=== PATIENT | male | born 1965 | race Caucasian/White ===

== ENCOUNTER 2021-12-09 15:37 | Inpatient (IN) | payer OTHER ==
[~2021-12-09] VITALS: Ht 170.2 cm; Wt 59.9 kg
[2021-12-09] MEDS ORDERED: HYDR4TAB57 PO (16:29)
[2021-12-09] MEDS ORDERED: CALC-883 PO (16:29)
[2021-12-09] MEDS ORDERED: TPN ELECTROLYTES IV (16:29)
[2021-12-09] MEDS ORDERED: ZINC220C6 PO (16:29)
[2021-12-09] MEDS ORDERED: CRAN3875 PO (16:29)
[2021-12-09] MEDS ORDERED: MULT-134 PO (16:29)
[2021-12-09] MEDS ORDERED: AMLO10TA4 PO (16:29)
[2021-12-09] MEDS ORDERED: MAGN400O6 PO (16:29)
[2021-12-09] MEDS ORDERED: ENOX40DI SQ (16:29)
[2021-12-09] MEDS ORDERED: DOCU-141 PO (16:29)
[2021-12-09] MEDS ORDERED: FERR325T23 PO (16:29)
[2021-12-09] MEDS ORDERED: LINA5TAB PO (16:29)
[2021-12-09] MEDS ORDERED: INSU100V7 SQ (16:29)
[2021-12-09] MEDS ORDERED: PANT40TA49 PO (16:29)
[2021-12-09] MEDS ORDERED: INSU100V3 IJ (16:29)
[2021-12-09] MEDS ORDERED: OCTR100V IJ (16:29)
[2021-12-09] MEDS ORDERED: ASCO500C17 PO (16:29)
--- NOTE | 2021-12-09 16:44 | NUR ---
PT W/ PATY PICC LINE GRINDER SET UP OPERATOR THREAD. BLOOD DRAWN AND SENT TO LAB.
[2021-12-09 16:54] LABS: BASOPHILS # (AUTO) 0.1 K/uL (0.0-0.2); BASOPHILS % (AUTO) 0.5 % (0.0-2.0); EOSINOPHILS % (AUTO) 0.1 % (0.0-6.0); HEMATOCRIT 22 % (39-51); HEMOGLOBIN 7.2 g/dL (13.5-17.5); LYMPHOCYTES # (AUTO) 1.1 K/uL (0.8-4.8); LYMPHOCYTES % (AUTO) 4.9 % (20.0-44.0); MEAN CORPUSCULAR HGB CONC 33 g/dl (31.0-36.0); MEAN CORPUSCULAR VOLUME 84 fL (80-96); MONOCYTES # (AUTO) 1.4 K/uL (0.1-1.30); MONOCYTES % (AUTO) 6.1 % (2.0-12.0); NEUTROPHILS # (AUTO) 20.5 K/uL (1.8-8.9); NEUTROPHILS % (AUTO) 88.4 % (43.0-81.0); PLATELET COUNT (AUTO) 473 K/uL (150-450); RED BLOOD CELL COUNT(AUTO) 2.59 MIL/uL (4.5-6.0); WHITE BLOOD COUNT (AUTO) 23.2 K/uL (4.3-11.0)
[2021-12-09 17:06] LABS: ALBUMIN 1.5 g/dL (3.4-5.0); BILIRUBIN,DIRECT 0.3 mg/dL (0.0-0.2); BILIRUBIN,TOTAL 0.4 mg/dL (0.2-1.0); CALCIUM, SERUM 8.2 mg/dL (8.5-10.1)
[2021-12-09 17:11] LABS: POTASSIUM 1.9 mmol/L (3.5-5.1)
[2021-12-09] MEDS ORDERED: POTASSIUM CL. PREMIX PERIPHER. 150 ML ONE (17:16)
[2021-12-09] MEDS: POTASSIUM CL. PREMIX PERIPHER. 50 ML IV SCH ×5 (17:25→23:30)
[2021-12-09] MEDS ORDERED: VANCOMYCIN 1 GM in IV D5W 250 ML IV ONE (17:30)
[2021-12-09] MEDS ORDERED: CEFEPIME 1 GM in IV D5W 50 ML IV ONE (17:30)
--- NOTE | 2021-12-09 17:37 | NUR ---
COVID SWAB COLLECTED AND SENT TO LAB
[2021-12-09 18:43] LABS: LYMPHOCYTES % (MANUAL) 7 % (16-48); MONOCYTES % (MANUAL) 5 % (0-11.0); NEUTROPHILS % (MANUAL) 88 (42-76)
--- NOTE | 2021-12-09 19:29 | NUR ---
[facility] CALLED DESIGN DRAFTER CHIEF PAGED.
--- NOTE | 2021-12-09 19:42 | NUR ---
BLOOD CULTURES COLLECTED
--- NOTE | 2021-12-09 20:02 | NUR ---
PT TAKEN FOR CT SCAN
--- NOTE | 2021-12-09 20:31 | NUR ---
BLOOD DRAWN FOR REFLEX LACTIC ACID
--- NOTE | 2021-12-09 21:11 | NUR ---
LACTIC ACID 2.3, AWARE
--- NOTE | 2021-12-09 21:11 | NUR ---
HOSPITALIST AT BEDSIDE
[2021-12-09] MEDS ORDERED: ZOLPIDEM TARTRATE 5 MG TABLET PO PRN (22:00)
[2021-12-09] MEDS ORDERED: MORPHINE SULFATE INJ 2 MG/ML DISP.SYRIN IV PRN (22:00)
[2021-12-09] MEDS ORDERED: Z GUARD REMEDY 4 OZ OINT TP PRN (22:00)
[2021-12-09] MEDS ORDERED: IV NS 0.9% 1,000 ML BAG IV ONE (22:00)
--- NOTE | 2021-12-09 22:18 | NUR ---
TAM ARM PICC LINE REMOVED HI MD ORDERS. TIP OBTAINED TO BE CULTURED.
[2021-12-09] MEDS ORDERED: POTASSIUM CL. PREMIX PERIPHER. 50 ML ONE ×2 (22:21→23:26)
--- NOTE | 2021-12-09 23:16 | NUR ---
PER DATASTAGE ARCHITECT RON, AIRBORNE PRECAUTIONS FOR POSSIBLE TB
[2021-12-10] VITALS (10 sets, daily range): BP systolic 96–122; BP diastolic 60–79
--- NOTE | 2021-12-10 00:20 | NUR ---
ROOM 101
--- NOTE | 2021-12-10 00:52 | NUR ---
REPORT GIVEN TO DASHAWN WOO FOR JULIO CESAR
--- NOTE | 2021-12-10 01:45 | NUR ---
RN ADMITTING NOTE RECEIVED PATIENT FROM ER VIA GURNEY ACCOMPANIED BY 2 ER STAFF, TRASNFERRED TO BED WITH MINIMAL ASSISTANCE, AAO X 4, WITH UNCLEAR SPEECH AT TIMES. BREATHING EVEN AND UNLABORED, SATURATION AT 96% ON 2L VIA NC, SR ON THE MONITOR, HR IS 92. IV LINE AT RFA 20G PATENT AND FLUSHING WELL, NO S/S OF INFECTION OR INFILTRATION, STARTED IV FLUID OF NS AT 75 ML/HR. COLOSTOMY BAG DRAINING TO A LIQUID, YELLOW OUTPUT. COMPREHENSIVE ASSESSMENT DONE, NOTED REDNESS AT COCCYX. PATIENT IS CONTINENT AND ABLE TO USE URINAL. SAFETY MEASURES IN PLACE, BED IS LOCKED AND AT LOWEST POSITION, BED ALARM ON, SIDE RAILS UP X 2, CALL LIGHT WITHIN REACH OF PATIENT. WILL CONT TO MONITOR AND CARRY OUT MD ORDERS.
[2021-12-10] MEDS ORDERED: PIPERACILLIN /TAZOBACTAM 3.375 G VIAL IV ONE (02:15)
[2021-12-10] MEDS: ZOSYN IVPB 3.375 G in IV D5W 50ml IV SCH ×6 (02:17→23:54)
[2021-12-10] MEDS: POTASSIUM CL. PREMIX PERIPHER. 50 ML IV SCH ×11 (02:51→23:47)
[2021-12-10] MEDS: HYDROMORPHONE 1 MG/1 ML DISP.SYRIN IV PRN ×2 (02:52→08:46)
[2021-12-10] MEDS: IV NS 0.9% 1,000 ML IV PRN (02:53)
--- NOTE | 2021-12-10 03:11 | NUR ---
RN NOTE STOOL COLLECTED, LAB NOTIFIED.
[2021-12-10 04:27] LABS: OCCULT BLOOD STOOL POSITIVE (NEGATIVE)
--- NOTE | 2021-12-10 05:38 | NUR ---
URINE COLLECTED, KIM OF LAB NOTIFIED.
[2021-12-10 06:15] LABS: BASOPHILS % (AUTO) 0.2 % (0.0-2.0); EOSINOPHILS % (AUTO) 0.4 % (0.0-6.0); HEMATOCRIT 21 % (39-51); LYMPHOCYTES # (AUTO) 0.8 K/uL (0.8-4.8); LYMPHOCYTES % (AUTO) 4.1 % (20.0-44.0); MEAN CORPUSCULAR HGB CONC 33 g/dl (31.0-36.0); MEAN CORPUSCULAR VOLUME 84 fL (80-96); MONOCYTES # (AUTO) 1.1 K/uL (0.1-1.30); MONOCYTES % (AUTO) 5.5 % (2.0-12.0); NEUTROPHILS % (AUTO) 89.8 % (43.0-81.0); PLATELET COUNT (AUTO) 434 K/uL (150-450); RED BLOOD CELL COUNT(AUTO) 2.45 MIL/uL (4.5-6.0)
[2021-12-10 06:34] LABS: HEMOGLOBIN 6.8 g/dL (13.5-17.5)
[2021-12-10 06:44] LABS: BILIRUBIN,URINE NEGATIVE (NEGATIVE); COLOR,URINE YELLOW (YELLOW); LEUKOCYTE ESTERASE ,URINE NEGATIVE (NEGATIVE); NITRITE, URINE NEGATIVE (NEGATIVE); PH,URINE 8.5 (5.0-8.0); PROTEIN,URINE 100 mg/dl (NEGATIVE); UGLUCOSE NEGATIVE (NEGATIVE); UROBILINOGEN,URINE 0.2 EU/dL (0.2)
[2021-12-10 07:04] LABS: THYROID STIMULATING HORMONE 1.436 uIU/mL (0.358-3.74)
[2021-12-10 07:25] LABS: BACTERIA,URINE Few /HPF (None Seen); SQUAMOUS EPITHELIAL CELL,UR Few /HPF (None Seen); WBC,URINE 21-50 /HPF (0-3)
--- NOTE | 2021-12-10 07:40 | NUR ---
RN NOTE 0600 DOSE OF ZOSYN NON ADMINISTERED PRECEDING DOSE WAS GIVEN AT 0217 BEC PATIENT TRANSFERRED FROM ER AT 0145. SPOKE WITH KRISTA FROM PHARMACY STATED WILL KEEP SCHEDULED Q6, ADMINISTER 0600 DOSE AT 0730 THEN CONTINUE PROCEEDING SCHEDULE AT 1200. MATHEW WOO MADE AWARE
[2021-12-10] MEDS: PANTOPRAZOLE 40 MG VIAL IV SCH (08:44)
--- NOTE | 2021-12-10 08:45 | NUR ---
PATIENT HGB LOW NEED BLOOD TRANSFUSION AND MULTIPLE IV,DR. RICHARDSON ORDERED MIDLINE.NURSING SUP NOTIFIED.
--- NOTE | 2021-12-10 08:49 | NUR ---
REQUEST FOR RELEASED OF MEDICAL RECORDS FAXED TO [facility],WILL FF. UP SINCE MEDICAL RECORDS CLOSE ON WEEKEND.
--- NOTE | 2021-12-10 09:34 | NUR ---
followup with nursing jason in [place] spoke with rocio and she will try to send record today,refaxed request to [phone]. tel #[phone],nursing jason townsend made aware.
[2021-12-10 10:12] LABS: CALCIUM, SERUM 7.1 mg/dL (8.5-10.1); CREATININE 1.6 mg/dL (0.6-1.3); PHOSPHORUS 3.5 mg/dL (2.5-4.9)
--- NOTE | 2021-12-10 10:15 | NUR ---
RT Sputum Induction AF[employer] 1 done.
[2021-12-10 10:17] LABS: POTASSIUM 2.6 mmol/L (3.5-5.1)
[2021-12-10] MEDS: Magnesium 1GM/D5W 100ML PREMIX 100 ML IV SCH ×4 (10:42→13:46)
[2021-12-10] MEDS: ACETAMINOPHEN 650 MG/SUPP.RECT RC PRN (10:51)
[2021-12-10] MEDS: ONDANSETRON HCL/PF 4 MG/2 ML VIAL IVP PRN ×2 (10:51→11:25)
[2021-12-10 12:26] LABS: LYMPHOCYTES % (MANUAL) 4 % (16-48); MONOCYTES % (MANUAL) 4 % (0-11.0); NEUTROPHILS % (MANUAL) 92 (42-76)
--- NOTE | 2021-12-10 12:30 | NUR ---
RECIEVED HAND OFF REPORT FROM MATHEW. WILL CONTINUE PLAN OF CARE AND ANTICIPATE NEEDS.
[2021-12-10] MEDS ORDERED: VANCOMYCIN HCL 0.75 GM in IV D5W 250 ML IV ONE (14:00)
[2021-12-10] MEDS ORDERED: POTASSIUM CHLORIDE 20 MEQ TAB.PRT.SR PO ONE (16:00)
--- NOTE | 2021-12-10 16:15 | NUR ---
FOLLOWUP UP WITH KAYLEN RAMIREZ IN [place] UNABLE TO LOCATE MEDICAL RECORD SINCE MULTIPLE PT. W/ SAME NAME AND DATE OF AND SHE IS DOING STAFFING ALREADY.
--- NOTE | 2021-12-10 18:52 | NUR ---
RN CLOSING NOTE PATIENT REMAINS IN STABLE CONDITION. SAFETY MEASURES IMPLEMENTED. HAMD OFF REPORT GIVEN TO NIGHTSHIFT FOR CONTINUATION OF CARE.
--- NOTE | 2021-12-10 19:00 | NUR ---
RN NOTE PATIENT IN BED, AAO X 4, WITH UNCLEAR SPEECH AT TIMES. BREATHING EVEN AND UNLABORED, SATURATION AT 94% ON 2L VIA NC, ST ON THE MONITOR, HR IS 103. IV LINE AT R HAND 20G AND PATY MIDLINE PATENT AND FLUSHING WELL, NO S/S OF INFECTION OR INFILTRATION, NS AT 75 ML/HR AND ONGOING KCL REPLACEMENT AT 50 ML/HR. COLOSTOMY BAG DRAINING TO A LIQUID, YELLOW OUTPUT. SAFETY MEASURES IN PLACE, BED IS LOCKED AND AT LOWEST POSITION, BED ALARM ON, SIDE RAILS UP X 2, CALL LIGHT WITHIN REACH OF PATIENT. WILL CONT TO MONITOR AND CARRY OUT MD ORDERS.
[2021-12-10] MEDS: VANCOMYCIN HCL 0.75 GM in IV D5W 250 ML IV SCH (20:28)
--- NOTE | 2021-12-10 22:02 | NUR ---
RN NOTE CRITICAL LAB: GRAM POSITIVE ORGANISM ON BLOOD CULTURE, READ BACK DONE WITH NICOLE. DR RON WAS NOTIFIED, ACKNOWLEDGED WITH NO NEW ORDERS.
[2021-12-11] VITALS: BP 118/67
[2021-12-11] MEDS: HYDROMORPHONE 1 MG/1 ML DISP.SYRIN IV PRN ×3 (00:14→18:45)
[2021-12-11] MEDS: IV NS 0.9% 1,000 ML IV PRN ×2 (00:15→15:53)
--- NOTE | 2021-12-11 00:25 | NUR ---
PATIENT'S SOCIAL SECURITY NUMBER: [phone]. WILL REMIND AM SHIFT RN TO OBTAIN MEDICAL RECORDS FROM [facility].
[2021-12-11] MEDS: ONDANSETRON HCL/PF 4 MG/2 ML VIAL IVP PRN (03:01)
[2021-12-11] MEDS: ACETAMINOPHEN 650 MG/SUPP.RECT RC PRN (03:01)
[2021-12-11 04:00] VITALS: BP 104/69
[2021-12-11] MEDS: ZOSYN IVPB 3.375 G in IV D5W 50ml IV SCH (06:45)
[2021-12-11 06:57] LABS: BASOPHILS # (AUTO) 0.1 K/uL (0.0-0.2); BASOPHILS % (AUTO) 0.4 % (0.0-2.0); EOSINOPHILS % (AUTO) 1.3 % (0.0-6.0); HEMATOCRIT 22 % (39-51); HEMOGLOBIN 7.2 g/dL (13.5-17.5); LYMPHOCYTES # (AUTO) 0.7 K/uL (0.8-4.8); LYMPHOCYTES % (AUTO) 4.9 % (20.0-44.0); MEAN CORPUSCULAR HGB CONC 33 g/dl (31.0-36.0); MEAN CORPUSCULAR VOLUME 85 fL (80-96); MONOCYTES # (AUTO) 0.9 K/uL (0.1-1.30); MONOCYTES % (AUTO) 6.5 % (2.0-12.0); NEUTROPHILS # (AUTO) 12.2 K/uL (1.8-8.9); NEUTROPHILS % (AUTO) 86.9 % (43.0-81.0); PLATELET COUNT (AUTO) 447 K/uL (150-450); RED BLOOD CELL COUNT(AUTO) 2.57 MIL/uL (4.5-6.0)
[2021-12-11 07:19] LABS: CALCIUM, SERUM 7.7 mg/dL (8.5-10.1); CREATININE 1.3 mg/dL (0.6-1.3)
[2021-12-11 07:23] LABS: MAGNESIUM 2.2 mg/dL (1.8-2.4); PHOSPHORUS 2.7 mg/dL (2.5-4.9)
[2021-12-11 08:00] VITALS: BP 116/72
--- NOTE | 2021-12-11 08:03 | NUR ---
spoke with KRISTINA RAMIREZ [place] and requested again pt, medical records [facility] #[phone],she will look into it and will faxed to given so number,will continue to follow up.
--- NOTE | 2021-12-11 08:23 | NUR ---
rn notes: DR Elizondo making round made aware of positive blood culture, potassium 3.0 and CO2 of 41, no orders at this time,RT trying to collect sputum pt is asking for water to drink, DR Ok to start him on diet
[2021-12-11] MEDS: VANCOMYCIN HCL 0.75 GM in IV D5W 250 ML IV SCH ×2 (08:46→20:43)
[2021-12-11] MEDS: PANTOPRAZOLE 40 MG VIAL IV SCH (08:46)
--- NOTE | 2021-12-11 08:46 | NUR ---
RT PT ALERT AWAKE FOLLOWING COMMANDS, CLEAR BREATHSOUNDS HAS A STRONG COUGH ABLE TO COUGH UP PHLEGM FOR AFB SPUTUM DAY TWO, UNABLE TO PRODUCE ENOUGH SPUTUM GAVE HIM A SPUTUM CUP BY BEDSIDE TO COLLECT AND SPIT OUT, INFORMED AMNA JUAREZ
--- NOTE | 2021-12-11 09:34 | NUR ---
received chart from [facility] on chart. dr. reny knowles.
--- NOTE | 2021-12-11 09:35 | NUR ---
Dr. Cox notified RT unable to obtain second sputm despite induced.
[2021-12-11] MEDS: POTASSIUM CHLORIDE 20 MEQ POWDER PACKET PO SCH ×3 (11:25→13:29)
--- NOTE | 2021-12-11 11:43 | NUR ---
afb # 3 sputum send to lab.
[2021-12-11 12:00] VITALS: BP 115/65
[2021-12-11] MEDS: PIPERACILLIN /TAZOBACTAM 3.375 G in IV D5W 100 ML IV SCH ×2 (12:45→21:57)
[2021-12-11 16:00] VITALS: BP 109/74
[2021-12-11 16:11] LABS: ABG BASE EXCESS 10.3 mmol/L; ABG PCO2 44.3 mmHg (35.0-45.0); ABG PH 7.507 (7.350-7.450); ABG PO2 65.6 mmHg (75.0-100.0); AaDO2 81.8 mmHg; COHb 0.3 % (0.5-1.5); MetHb 0.2 % (0.0-1.5); O2Hb 92.5 % (94.0-97.0); SITE, ABG Right Radial; VENT MODE, BG 2L NC
--- NOTE | 2021-12-11 19:35 | NUR ---
JITNEY DRIVER OPENING NOTE RECEIVED PATIENT IN BED, A/O X 4, ON O2 VIA NC AT 2LPM, BREATHING EVEN AND UNLABORED, SATURATION AT 94%, ON TELE MONITORING CURRENTLY READING ST WITH HR AT 103. IV LINE AT PATY MIDLINE RUNNING NS AT 75 ML/HR. NO S/S OF INFECTION OR INFILTRATION, NOTED WITH COLOSTOMY BAG DRAINING TO GREENISH COLORED OUTPUT. SAFETY MEASURES IN PLACE, BED IS LOCKED AND AT LOWEST POSITION, BED ALARM ON, SIDE RAILS UP X 2, CALL LIGHT WITHIN REACH OF PATIENT. WILL CONT TO MONITOR THROUGHOUT THE SHIFT.
--- NOTE | 2021-12-11 19:39 | NUR ---
HIDE STRETCHER HAND CLOSING NOTE: PATIENT REMAINS IN ROOM IN NO SIGNS OF RESPIRATORY DISTRESS, PATIENT STILL ON 2L OF 02 VIA NC;TOLERATING WELL SATURATING @>95% SP02 AT THIS TIME. SAFETY MEASURES IMPLEMENTED, BED IN LOWEST POSITION, LOCKED, SIDE RAILS UP, CALL LIGHT WITHIN REACH. ALL NEEDS AND ORDERS ADDRESSED DURING THE SHIFT. IV ACCESS MAINTAINED INTACT, SECURED AND FLUSHING WELL. ALL DUE MEDS GIVEN ORDERED & SCHEDULED ; PATIENT TOLERATED WELL.ENDORSED TO OPERATIONS SPECIALISTS TO CONTINUE TO MONITOR FOR ANY JULIO CESAR
[2021-12-11 20:00] VITALS: BP 108/76
[2021-12-12] VITALS: BP 118/76
--- NOTE | 2021-12-12 00:47 | NUR ---
RN NOTE PT COMPLAINTS OF SEVERE PAIN ON THE ABDOMEN AREA, RATED 8/10 ON PAIN SCALE. DILAUDID GIVEN PRN FOR PAIN, PARTIAL DOSE WASTED WITH AMNA DANIELS. WILL CONT TO MONITOR.
[2021-12-12] MEDS: HYDROMORPHONE 1 MG/1 ML DISP.SYRIN IV PRN ×4 (00:50→19:47)
[2021-12-12 04:00] VITALS: BP 116/74
[2021-12-12] MEDS: PIPERACILLIN /TAZOBACTAM 3.375 G in IV D5W 100 ML IV SCH ×3 (04:34→20:55)
[2021-12-12] MEDS: IV NS 0.9% 1,000 ML IV PRN (04:34)
--- NOTE | 2021-12-12 06:57 | NUR ---
RN NOTE PT COMPLAINTS OF SEVERE PAIN ON THE ABDOMEN AREA, RATED 9/10 ON PAIN SCALE. DILAUDID GIVEN PRN FOR PAIN, PARTIAL DOSE WASTED WITH CN RAMILA. WILL CONT TO MONITOR.
--- NOTE | 2021-12-12 06:57 | NUR ---
SLITTING MACHINE OPERATOR CLOSING NOTE PATIENT REMAINS IN BED, A/O X 4, ON O2 VIA NC AT 2LPM, BREATHING EVEN AND UNLABORED, SATURATION AT 93%, ON TELE MONITORING CURRENTLY READING ST WITH HR AT 107. IV LINE AT PATY MIDLINE RUNNING NS AT 75 ML/HR. NO S/S OF INFECTION OR INFILTRATION, NOTED WITH COLOSTOMY BAG DRAINING TO GREENISH YELLOW COLORED OUTPUT. SAFETY MEASURES IN PLACE, ALL DUE MEDS GIVEN, KEPT DRY AND CLEAN, BED IS LOCKED AND AT LOWEST POSITION, BED ALARM ON, SIDE RAILS UP X 2, CALL LIGHT WITHIN REACH OF PATIENT. WILL ENDORSE TO AM SHIFT NURSE.
[2021-12-12 07:17] LABS: CALCIUM, SERUM 8.2 mg/dL (8.5-10.1); CREATININE 1.3 mg/dL (0.6-1.3); POTASSIUM 3.4 mmol/L (3.5-5.1)
--- NOTE | 2021-12-12 07:35 | NUR ---
RN OPENING NOTE RECEIVED PATIENT IN BED, A/O X 3, ON O2 VIA NC AT 2LPM, BREATHING EVEN AND UNLABORED, SATURATION AT 93%, ON TELE MONITORING CURRENTLY READING ST WITH HR AT 107. IV LINE AT PATY MIDLINE RUNNING NS AT 75 ML/HR. NO S/S OF INFECTION OR INFILTRATION, NOTED WITH COLOSTOMY BAG DRAINING TO YELLOW COLORED OUTPUT. SAFETY MEASURES IN PLACE, BED IS LOCKED AND AT LOWEST POSITION, BED ALARM ON, SIDE RAILS UP X 2, CALL LIGHT WITHIN REACH OF PATIENT. WILL CONT TO MONITOR THROUGHOUT THE SHIFT.
[2021-12-12 08:00] VITALS: BP 110/79
[2021-12-12] MEDS: PANTOPRAZOLE 40 MG VIAL IV SCH (08:40)
[2021-12-12] MEDS: VANCOMYCIN HCL 0.75 GM in IV D5W 250 ML IV SCH ×2 (08:41→20:55)
--- NOTE | 2021-12-12 08:58 | NUR ---
RT DAY 3 AFB SPUTUM, GAVE PT SPUTUM CUP WITH LABEL AND INSTRUCTED HIM TO COUGH UP A SAMPLE, CHARGE NURSE SOON + MARU WOO AWARE
[2021-12-12] MEDS ORDERED: POTASSIUM CHLORIDE 20 MEQ POWDER PACKET PO SCH (10:30)
[2021-12-12 12:00] VITALS: BP 122/71
[2021-12-12 16:00] VITALS: BP 116/77
[2021-12-12] MEDS: GLUCERNA SHAKE 237 ML CAN PO SCH (17:46)
--- NOTE | 2021-12-12 18:00 | NUR ---
RN NOTE LAB CALLED AND REQUESTED ANOTHER COUGH SPUTUM SAMPLE, PT CANNOT SPIT AT THE MOMENT, NOTIFIED LAB. WILL ENDORSE TO ENDING MACHINE OPERATOR TO COLLECT SAMPLE.
--- NOTE | 2021-12-12 19:45 | NUR ---
INTERNATIONAL FLIGHT ATTENDANT OPENING NOTE RECEIVED PATIENT IN BED, A/O X 4, ON O2 VIA NC AT 2LPM, BREATHING EVEN AND UNLABORED, SATURATION AT 94%, ON TELE MONITORING CURRENTLY READING ST WITH HR AT 105. IV LINE AT PATY MIDLINE RUNNING NS AT 75 ML/HR. NO S/S OF INFECTION OR INFILTRATION, NOTED WITH COLOSTOMY BAG DRAINING TO YELLOW COLORED OUTPUT. SAFETY MEASURES IN PLACE, BED IS LOCKED AND AT LOWEST POSITION, BED ALARM ON, SIDE RAILS UP X 2, CALL LIGHT WITHIN REACH OF PATIENT. WILL CONT TO MONITOR THROUGHOUT THE SHIFT.
--- NOTE | 2021-12-12 19:50 | NUR ---
RN CLOSING NOTE RECEIVED PATIENT IN BED, A/O X 3, ON O2 VIA NC AT 2LPM, BREATHING EVEN AND UNLABORED, SATURATION AT 96%, ON TELE MONITORING CURRENTLY READING ST WITH HR AT 105. IV LINE AT PATY MIDLINE RUNNING NS AT 75 ML/HR. NO S/S OF INFECTION OR INFILTRATION, NOTED WITH COLOSTOMY BAG DRAINING TO YELLOW COLORED OUTPUT. SAFETY MEASURES IN PLACE, BED IS LOCKED AND AT LOWEST POSITION, BED ALARM ON, SIDE RAILS UP X 2, CALL LIGHT WITHIN REACH OF PATIENT. WILL ENDORSE CONTINUITY OF CARE TO HEAD OF ART NURSE.
[2021-12-12 20:00] VITALS: BP 137/84
[2021-12-13] VITALS: BP 113/83
[2021-12-13] MEDS: IV NS 0.9% 1,000 ML IV PRN ×2 (00:12→14:57)
[2021-12-13 04:00] VITALS: BP 134/81
[2021-12-13] MEDS: PIPERACILLIN /TAZOBACTAM 3.375 G in IV D5W 100 ML IV SCH ×3 (04:10→21:19)
[2021-12-13] MEDS: HYDROMORPHONE 1 MG/1 ML DISP.SYRIN IV PRN ×2 (04:11→16:15)
--- NOTE | 2021-12-13 04:11 | NUR ---
RN NOTE PT COMPLAINTS OF SEVERE PAIN ON THE ABDOMEN AREA, RATED 10/10 ON PAIN SCALE. DILAUDID GIVEN PRN FOR PAIN, PARTIAL DOSE WASTED WITH AMNA EARLY WILL CONT TO MONITOR.
[2021-12-13 06:38] LABS: CALCIUM, SERUM 8.2 mg/dL (8.5-10.1); CREATININE 1.2 mg/dL (0.6-1.3); POTASSIUM 3.5 mmol/L (3.5-5.1)
--- NOTE | 2021-12-13 06:53 | NUR ---
RESEARCH SPEC CLOSING NOTE PATIENT REMAINS IN BED, A/O X 4, ON O2 VIA NC AT 2LPM,TOLERATING WELL, BREATHING EVEN AND UNLABORED, SATURATION AT 93%, ON TELE MONITORING CURRENTLY READING ST WITH HR AT 108, WITH EPISODES OF SB. IV LINE AT PATY MIDLINE RUNNING NS AT 75 ML/HR. NO S/S OF INFECTION OR INFILTRATION, NOTED WITH COLOSTOMY BAG DRAINING TO YELLOW COLORED OUTPUT. SAFETY MEASURES IN PLACE, ALL DUE MEDS GIVEN, KEPT DRY AND CLEAN, BED IS LOCKED AND AT LOWEST POSITION, BED ALARM ON, SIDE RAILS UP X 2, CALL LIGHT WITHIN REACH OF PATIENT. WILL ENDORSE TO AM SHIFT NURSE.
--- NOTE | 2021-12-13 07:05 | NUR ---
DECKHAND OYSTER DREDGE OPENING NOTE: RECEIVED PT. AWAKE IN BED, A/O X 4, NO COMPLAINTS OF PAIN AT THIS TIME. ON O2 VIA NC AT 2LPM, TOLERATING WELL, NO S/S OF RESPIRATORY DISTRESS, ON TELE MONITORING CURRENTLY READING NSR/ST WITH HR AT 103 BPM AT THIS TIME. IV LINE AT PATY MIDLINE RUNNING NS AT 75 ML/HR. DRESSING C/D/I, NO S/S OF INFECTION OR INFILTRATION. NOTED WITH COLOSTOMY BAG DRAINING TO YELLOW COLORED OUTPUT. PT. USES URINAL IN BED. SAFETY MEASURES IN PLACE: BED IN LOWEST AND LOCKED POSITION, BED ALARM ON, HOB ELEVATED AT 30 DEGREES, SIDE RAILS UP X 2, CALL LIGHT WITHIN REACH OF PATIENT. WILL CONTINUE TO MONITOR PT. FOR ANY CHANGES.
[2021-12-13 08:00] VITALS: BP 132/85
[2021-12-13] MEDS: PANTOPRAZOLE 40 MG VIAL IV SCH (08:00)
[2021-12-13] MEDS: VANCOMYCIN HCL 0.75 GM in IV D5W 250 ML IV SCH ×2 (08:01→20:02)
[2021-12-13] MEDS: GLUCERNA SHAKE 237 ML CAN PO SCH ×2 (08:19→17:25)
[2021-12-13 12:00] VITALS: BP 136/79
[2021-12-13 16:00] VITALS: BP 128/83
--- NOTE | 2021-12-13 16:50 | NUR ---
ELEMENT WINDING MACHINE TENDER NOTE: PT. COMPLAINED OF 8/10 ACHING ABDOMINAL PAIN AT 1600. DILAUDID 0.5 MG IV GIVEN AT 1615. PT. SAYS PAIN IS NOW 0/10. WILL CONTINUE TO MONITOR PT.'S PAIN.
--- NOTE | 2021-12-13 19:08 | NUR ---
SATURATION DIVER CLOSING NOTE: PT. REMAINS IN BED, A/O X 4, SLEEPING AT THIS TIME. NO VISIBLE SIGNS OF PAIN/DISCOMFORT. PT. COMPLAINED OF 8/10 ABDOMINAL PAIN ONCE THIS SHIFT THAT RESOLVED AFTER GIVING DILAUDID. REMAINS ON O2 VIA NC AT 2LPM, TOLERATING WELL, NO S/S OF RESPIRATORY DISTRESS, TELE MONITORING READING THIS SHIFT IS NSR-ST WITH HR FROM 97-103 BPM. IV LINE AT PATY MIDLINE RUNNING NS AT 75 ML/HR. DRESSING C/D/I, NO S/S OF INFECTION OR INFILTRATION. COLOSTOMY BAG DRAINED 1,300ML YELLOW COLORED LIQUIDY STOOL. URINE OUTPUT OF 740 ML THIS SHIFT. NEW SPUTUM SAMPLE OBTAINED AND SENT TO LAB. WAITING FOR RESULT. SAFETY MEASURES MAINTAINED: BED IN LOWEST AND LOCKED POSITION, BED ALARM ON, HOB ELEVATED AT 30 DEGREES, SIDE RAILS UP X 2, CALL LIGHT WITHIN REACH OF PATIENT. WILL ENDORSE CONTINUITY OF CARE TO SOFT METALS HAND ENGRAVER RN.
[2021-12-13 20:00] VITALS: BP 153/69
[2021-12-14] VITALS: BP 123/81
[2021-12-14] MEDS: HYDROMORPHONE 1 MG/1 ML DISP.SYRIN IV PRN ×5 (00:21→18:03)
[2021-12-14 04:00] VITALS: BP 127/98
--- NOTE | 2021-12-14 04:04 | NUR ---
closing notes: alert and orientated x4 abd wound with clear plastic dressing colostomy drainage yeoow and cloudy in color to OSD bag 1200 output Uses a urinal thru the night taking fluid w/o problems Remains in Isolation D/T R/O TB sputum sent to lab but was not 5 ml sputum cup given to the patient and instructed that we need a sputum sample..he understood the request medicated x1 with Dilaudid for ABD pain and effective
[2021-12-14] MEDS: PIPERACILLIN /TAZOBACTAM 3.375 G in IV D5W 100 ML IV SCH ×3 (04:31→21:41)
[2021-12-14 06:38] LABS: CALCIUM, SERUM 7.9 mg/dL (8.5-10.1); CREATININE 1.4 mg/dL (0.6-1.3)
[2021-12-14] MEDS: PANTOPRAZOLE 40 MG TABLET.DR PO SCH (07:22)
[2021-12-14] MEDS: VANCOMYCIN HCL 0.75 GM in IV D5W 250 ML IV SCH ×2 (07:23→20:14)
[2021-12-14] MEDS: GLUCERNA SHAKE 237 ML CAN PO SCH ×2 (07:23→16:10)
[2021-12-14 08:00] VITALS: BP 125/83
--- NOTE | 2021-12-14 08:36 | NUR ---
[employer] SPUTUM SEND TO LAB BY PRIMARY RN.
--- NOTE | 2021-12-14 10:25 | NUR ---
RN OPENING NOTE PT IS RESTING IN BED A.O X 3. ON 2L VIA NC SATING AT 96%. TELE READS SR. IV ACCESS ON PATY MIDLINE RUNNING NS AT 75ML/HR. ALL SAFETY MEASURES, FALL PRECAUTIONS IN PLACE. WILL CONT. TO MONITOR THROUGHOUT SHIFT.
[2021-12-14 12:00] VITALS: BP 130/80
--- NOTE | 2021-12-14 12:00 | NUR ---
lab called third afb sputum not enough,need to send at least 5ml specimen.primary RN made aware.
--- NOTE | 2021-12-14 12:45 | NUR ---
delivered sputum specimen to lab again. 5ml collected.
[2021-12-14 16:00] VITALS: BP 120/78
[2021-12-14] MEDS: IV NS 0.9% 1,000 ML IV PRN (17:23)
--- NOTE | 2021-12-14 18:41 | NUR ---
RN CLOSING NOTE PT IS RESTING IN BED A.O X 3. ON 2L VIA NC SATING AT 96%. TELE READS SR. IV ACCESS ON PATY MIDLINE RUNNING NS AT 75ML/HR. ALL SAFETY MEASURES, FALL PRECAUTIONS IN PLACE. WILL ENDORSE TO SPORTS MARKETER RN FOR JULIO CESAR.
[2021-12-14 20:00] VITALS: BP 117/62
[2021-12-15] VITALS: BP 126/85
[2021-12-15] MEDS: HYDROMORPHONE 1 MG/1 ML DISP.SYRIN IV PRN ×4 (00:34→19:52)
[2021-12-15 04:00] VITALS: BP 124/80
[2021-12-15] MEDS: PIPERACILLIN /TAZOBACTAM 3.375 G in IV D5W 100 ML IV SCH ×3 (05:05→21:17)
[2021-12-15] MEDS: IV NS 0.9% 1,000 ML IV PRN ×2 (06:16→08:38)
[2021-12-15 07:18] LABS: BASOPHILS # (AUTO) 0.1 K/uL (0.0-0.2); BASOPHILS % (AUTO) 0.4 % (0.0-2.0); EOSINOPHILS % (AUTO) 0.9 % (0.0-6.0); HEMATOCRIT 23 % (39-51); HEMOGLOBIN 7.5 g/dL (13.5-17.5); LYMPHOCYTES # (AUTO) 0.9 K/uL (0.8-4.8); LYMPHOCYTES % (AUTO) 5.8 % (20.0-44.0); MEAN CORPUSCULAR HGB CONC 33 g/dl (31.0-36.0); MEAN CORPUSCULAR VOLUME 85 fL (80-96); MONOCYTES % (AUTO) 6.4 % (2.0-12.0); NEUTROPHILS # (AUTO) 12.9 K/uL (1.8-8.9); NEUTROPHILS % (AUTO) 86.5 % (43.0-81.0); PLATELET COUNT (AUTO) 574 K/uL (150-450); RED BLOOD CELL COUNT(AUTO) 2.67 MIL/uL (4.5-6.0); WHITE BLOOD COUNT (AUTO) 14.9 K/uL (4.3-11.0)
--- NOTE | 2021-12-15 07:30 | NUR ---
RN Opening Note Pt AOx4, able to express his own concerns. States no pain or discomfort since pain medication was recently given. Pt able to express his own concerns, no signs of distress. States he is uncomfortable due to his situation with ostomy bag, states he has an appointment to see surgeon scheduled for next . Will continue to monitor, provide care and medications as scheduled. All safety precautions taken, call light and table within reach, bed at lowest position.
[2021-12-15 07:31] LABS: CALCIUM, SERUM 8.5 mg/dL (8.5-10.1); CREATININE 1.4 mg/dL (0.6-1.3); MAGNESIUM 1.5 mg/dL (1.8-2.4); PHOSPHORUS 3.6 mg/dL (2.5-4.9); POTASSIUM 3.7 mmol/L (3.5-5.1)
--- NOTE | 2021-12-15 07:46 | NUR ---
RN CLOSING NOTE PT IN BED, A/O X 3, ON 2L VIA NC WITH O2 WNL, NO SOB/ACUTE DISTRESS NOTED DURING THE NIGHT, ON PAIN MANAGEMENT FOR ABDOMEN OPEN WOUND, IV ACCESS ON PATY MIDLINE RUNNING NS AT 75ML/HR, INFUSING WELL, CONT ON ATB, OTHERWISE NO SIGNIFICANT CHANGE IN CONDITION DURING THE NIGHT, TB SEROLOGY STILL PENDING, ON STRICT AIRBORNE PRECAUTIONS, ALL SAFETY MEASURES, WILL ENDORSE CONTINUITY OF CARE TO ONCOMING NURSE.
[2021-12-15 08:00] VITALS: BP 125/86
[2021-12-15] MEDS: VANCOMYCIN HCL 0.75 GM in IV D5W 250 ML IV SCH (08:37)
[2021-12-15] MEDS: PANTOPRAZOLE 40 MG TABLET.DR PO SCH (08:37)
[2021-12-15] MEDS: GLUCERNA SHAKE 237 ML CAN PO SCH ×2 (08:38→17:38)
[2021-12-15] MEDS ORDERED: MAGNESIUM OXIDE 400 MG TABLET PO ONE (10:00)
[2021-12-15 12:00] VITALS: BP 125/83
[2021-12-15 16:00] VITALS: BP 137/86
--- NOTE | 2021-12-15 19:19 | NUR ---
RN Closing Note PT AOx4 able t express his own concerns. Patient remained stable throughout shift.Medications administered as ordered by physician, and care provided as needed. IV shows no signs of infiltration or pain reported at IV site. Call light and table within reach, bed at lowest position.
--- NOTE | 2021-12-15 19:30 | NUR ---
SPECIAL SERVICE REPRESENTATIVE OPENING NOTE: RECEIVED PT. AWAKE IN BED, A/O X 4, PATIENT SATTING AT 98% ON 2L NC. IV LINE AT PATY MIDLINE RUNNING NS AT 75 ML/HR. COLOSTOMY BAG DRAINING TO YELLOW COLORED OUTPUT. PT. USES URINAL IN BED. SAFETY MEASURES IN PLACE: BED IN LOWEST AND LOCKED POSITION, BED ALARM ON, HOB ELEVATED AT 30 DEGREES, SIDE RAILS UP X 2, CALL LIGHT WITHIN REACH OF PATIENT. WILL CONTINUE TO MONITOR PT. FOR ANY CHANGES.
[2021-12-15 20:00] VITALS: BP 107/71
[2021-12-16] VITALS: BP 120/80
[2021-12-16] MEDS: HYDROMORPHONE 1 MG/1 ML DISP.SYRIN IV PRN ×4 (00:38→20:13)
[2021-12-16] MEDS: ONDANSETRON HCL/PF 4 MG/2 ML VIAL IVP PRN (00:38)
[2021-12-16 04:00] VITALS: BP 120/71
[2021-12-16] MEDS: GLUCERNA SHAKE 237 ML CAN PO SCH ×2 (05:07→17:12)
[2021-12-16] MEDS: PIPERACILLIN /TAZOBACTAM 3.375 G in IV D5W 100 ML IV SCH ×3 (05:09→20:11)
[2021-12-16 06:49] LABS: BASOPHILS # (AUTO) 0.1 K/uL (0.0-0.2); BASOPHILS % (AUTO) 0.4 % (0.0-2.0); EOSINOPHILS % (AUTO) 0.8 % (0.0-6.0); HEMATOCRIT 24 % (39-51); HEMOGLOBIN 7.9 g/dL (13.5-17.5); LYMPHOCYTES # (AUTO) 0.9 K/uL (0.8-4.8); LYMPHOCYTES % (AUTO) 6.1 % (20.0-44.0); MEAN CORPUSCULAR HGB CONC 33 g/dl (31.0-36.0); MEAN CORPUSCULAR VOLUME 85 fL (80-96); NEUTROPHILS # (AUTO) 12.2 K/uL (1.8-8.9); NEUTROPHILS % (AUTO) 85.7 % (43.0-81.0); PLATELET COUNT (AUTO) 638 K/uL (150-450); RED BLOOD CELL COUNT(AUTO) 2.83 MIL/uL (4.5-6.0); WHITE BLOOD COUNT (AUTO) 14.2 K/uL (4.3-11.0)
[2021-12-16 07:27] LABS: CALCIUM, SERUM 9.1 mg/dL (8.5-10.1); CREATININE 1.9 mg/dL (0.6-1.3); MAGNESIUM 1.7 mg/dL (1.8-2.4); PHOSPHORUS 4.4 mg/dL (2.5-4.9); POTASSIUM 3.9 mmol/L (3.5-5.1)
--- NOTE | 2021-12-16 07:33 | NUR ---
CASTING INSPECTOR OPENING NOTES: RECEIVED PATIENT IN BED, AWAKE,ALERT,ORIENTED X 4. ON OXYGEN @ 2L/MIN VIA N/C WITH SATURATION OF 97%. ON ST ON TELEMONITOR WITH HR OF 103. NS RUNNING @ RIGHT UPPER ARM MIDLINE, IV SITE INTACT, NO S/S INFILTRATION NOTED. COLOSTOMY BAG INTACT, DRAINING WITH SOFT, WATERY LIGHT BROWNISH FECES. BED LOCKED AND IN LOWEST POSITION. CALL LIGHT WITHIN REACH. ALL SAFETY MEASURES IN PLACE. RESULT IS STILL PENDING TO R/O TB. WILL CONTINUE TO MONITOR PATIENT THROUGHOUT SHIFT
[2021-12-16] MEDS: PANTOPRAZOLE 40 MG TABLET.DR PO SCH (07:43)
--- NOTE | 2021-12-16 07:53 | NUR ---
RN/ CLOSING NOTE ALL CARE ENDORSED TO DAY SHIFT RN. PATIENT IS STABLE AND SHOWS NO SIGNS OF DISTRESS. ALL QUESTIONS ANSWERED.
[2021-12-16 08:00] VITALS: BP 125/73
[2021-12-16] MEDS ORDERED: VANCOMYCIN 500 MG in IV D5W 100ml IV SCH (09:00)
[2021-12-16] MEDS ORDERED: Magnesium 1GM/D5W 100ML PREMIX 100 ML IV SCH (10:30)
[2021-12-16 12:00] VITALS: BP 120/86
[2021-12-16 16:00] VITALS: BP 117/81
[2021-12-16] MEDS: IV NS 0.9% 1,000 ML IV PRN (18:03)
--- NOTE | 2021-12-16 18:41 | NUR ---
LEAD SOFTWARE ARCHITECT CLOSING NOTES: PATIENT IN BED, AWAKE,ALERT,ORIENTED X 4. ON OXYGEN @ 2L/MIN VIA N/C WITH SATURATION OF 98%. ON ST ON TELE MONITOR WITH HR OF 105. PATIENT HAS IV ACCESS ON RIGHT UPPER ARM MIDLINE RUNNING WITH NS @ 75 ML/HR IV, SITE PATENT, NO S/S INFILTRATION NOTED. PATIENT USED URINAL AND VOIDED 800 ML OF YELLOW COLORED URINE, NO HEMATURIA AND NO SEDIMENTATION NOTED. COLOSTOMY BAG INTACT, EMPTIED 1250 ML OF WATERY LIGHT BROWNISH YELLOWISH FECES. BED LOCKED AND IN LOWEST POSITION. CALL LIGHT WITHIN REACH. ALL SAFETY MEASURES IN PLACE. WILL ENDORSE TO NEXT SHIFT NURSE FOR CONTINUITY OF CARE.
--- NOTE | 2021-12-16 19:10 | NUR ---
RN NOTE PATIENT IN BED, A/O X 4, ABLE TO MAKE NEEDS KNOWN. BREATHING EVEN AND UNLABORED, SATURATION AT 95% ON 2L VIA NC, ST ON THE MONITOR, HR IS 103. IV LINE PATY MIDLINE PATENT AND FLUSHING WELL, NO S/S OF INFECTION OR INFILTRATION, NS AT 75 ML/HR . COLOSTOMY BAG DRAINING TO A LIQUID, YELLOW OUTPUT. SAFETY MEASURES IN PLACE, BED IS LOCKED AND AT LOWEST POSITION, BED ALARM ON, SIDE RAILS UP X 2, CALL LIGHT WITHIN REACH OF PATIENT.
[2021-12-16 20:00] VITALS: BP 113/80
[2021-12-17] VITALS: BP 113/84
[2021-12-17] MEDS: HYDROMORPHONE 1 MG/1 ML DISP.SYRIN IV PRN ×4 (02:16→18:50)
[2021-12-17 04:00] VITALS: BP 112/68
[2021-12-17] MEDS: PIPERACILLIN /TAZOBACTAM 3.375 G in IV D5W 100 ML IV SCH (04:54)
[2021-12-17] MEDS: IV NS 0.9% 1,000 ML IV PRN ×2 (05:40→20:43)
--- NOTE | 2021-12-17 06:54 | NUR ---
RN NOTES PATIENT IN BED, AWAKE,ALERT,ORIENTED X 4. ON OXYGEN @ 2L/MIN VIA N/C WITH SATURATION OF 98%. ON ST ON TELE MONITOR WITH HR OF 105. PATIENT HAS IV ACCESS ON RIGHT UPPER ARM MIDLINE RUNNING WITH NS @ 75 ML/HR IV, SITE PATENT, NO S/S INFILTRATION NOTED. PATIENT USED URINAL AND VOIDED 800 ML OF YELLOW COLORED URINE, NO HEMATURIA AND NO SEDIMENTATION NOTED. COLOSTOMY BAG INTACT, EMPTIED WATERY LIGHT BROWNISH YELLOWISH FECES. BED LOCKED AND IN LOWEST POSITION. CALL LIGHT WITHIN REACH. ALL SAFETY MEASURES IN PLACE. WILL ENDORSE TO NEXT SHIFT NURSE FOR CONTINUITY OF CARE.
--- NOTE | 2021-12-17 07:29 | NUR ---
OWNER/PHOTOGRAPHER CLOSING NOTES: PATIENT IN BED, AWAKE,ALERT,ORIENTED X 4. ON OXYGEN @ 2L/MIN VIA N/C TOLERATING WELL , BREATHING NON LABORED ON , NO SIGHS OF DISTRESS PATIENT HAS IV ACCESS ON RIGHT UPPER ARM MIDLINE RUNNING WITH NS @ 75 ML/HR IV, SITE PATENT, NO S/S INFILTRATION NOTED. PATIENT USED URINAL AND VOIDED 800 ML OF YELLOW COLORED URINE, NO HEMATURIA COLOSTOMY BAG INTACT,OF WATERY LIGHT BROWNISH YELLOWISH FECES.PATIENT C/O PAIN DURING MORNING ASSESSMANT 10/02 OFVTHE ABDOMEN. BED LOCKED AND IN LOWEST POSITION. CALL LIGHT WITHIN REACH. ALL SAFETY MEASURES IN PLACE. WILL CONTINUE TO FALLOW UP WITH POC
[2021-12-17 07:33] LABS: BASOPHILS % (AUTO) 0.3 % (0.0-2.0); EOSINOPHILS % (AUTO) 0.7 % (0.0-6.0); HEMATOCRIT 24 % (39-51); HEMOGLOBIN 7.7 g/dL (13.5-17.5); LYMPHOCYTES # (AUTO) 0.8 K/uL (0.8-4.8); LYMPHOCYTES % (AUTO) 5.7 % (20.0-44.0); MEAN CORPUSCULAR HGB CONC 32 g/dl (31.0-36.0); MEAN CORPUSCULAR VOLUME 85 fL (80-96); MONOCYTES # (AUTO) 1.1 K/uL (0.1-1.30); MONOCYTES % (AUTO) 7.3 % (2.0-12.0); NEUTROPHILS # (AUTO) 12.6 K/uL (1.8-8.9); PLATELET COUNT (AUTO) 634 K/uL (150-450); RED BLOOD CELL COUNT(AUTO) 2.82 MIL/uL (4.5-6.0); WHITE BLOOD COUNT (AUTO) 14.6 K/uL (4.3-11.0)
[2021-12-17] MEDS: GLUCERNA SHAKE 237 ML CAN PO SCH ×2 (07:41→16:10)
[2021-12-17] MEDS: PANTOPRAZOLE 40 MG TABLET.DR PO SCH (07:44)
[2021-12-17 07:54] LABS: CALCIUM, SERUM 9.4 mg/dL (8.5-10.1); CREATININE 2.2 mg/dL (0.6-1.3); MAGNESIUM 2.1 mg/dL (1.8-2.4); PHOSPHORUS 4.5 mg/dL (2.5-4.9); POTASSIUM 4.3 mmol/L (3.5-5.1)
[2021-12-17 08:00] VITALS: BP 113/75
[2021-12-17 12:00] VITALS: BP 116/80
[2021-12-17] MEDS: PIPERACILLIN /TAZOBACTAM 2.25 G in IV D5W 50 ML IV SCH ×2 (12:13→20:31)
[2021-12-17] MEDS ORDERED: HYDROMORPHONE 1 MG/1 ML DISP.SYRIN IV ONE (12:30)
[2021-12-17] MEDS ORDERED: D5W IV SCH (13:00)
[2021-12-17] MEDS ORDERED: TAZOBACTAM IV SCH (13:00)
[2021-12-17] MEDS ORDERED: PIPERACILLIN IV SCH (13:00)
[2021-12-17 16:02] VITALS: BP 108/71
--- NOTE | 2021-12-17 18:56 | NUR ---
BRICK KILN WORKER CLOSING NOTES: PATIENT IN BED, AWAKE,ALERT,ORIENTED X 4. ON OXYGEN @ 2L/MIN VIA N/C WITH SATURATION OF 98%. ON TELE MONITOR ST WITH HR OF 105. PATIENT HAS IV ACCESS ON RIGHT UPPER ARM MIDLINE RUNNING WITH NS @ 75 ML/HR IV, SITE PATENT, NO S/S INFILTRATION NOTED. PATIENT USED URINAL AND VOIDED 750 ML OF YELLOW COLORED URINE, NO HEMATURIA AND NO SEDIMENTATION NOTED. COLOSTOMY BAG INTACT, EMPTIED 650 ML OF WATERY LIGHT BROWNISH YELLOWISH FECES. BED LOCKED AND IN LOWEST POSITION. CALL LIGHT WITHIN REACH. ALL SAFETY MEASURES IN PLACE. WILL ENDORSE TO NEXT SHIFT NURSE FOR CONTINUITY OF CARE.
--- NOTE | 2021-12-17 19:10 | NUR ---
RN NOTE PATIENT IN BED, A/O X 4, ABLE TO MAKE NEEDS KNOWN. BREATHING EVEN AND UNLABORED, SATURATION AT 95% ON 2L VIA NC, ST ON THE MONITOR, HR IS 103. IV LINE PATY MIDLINE PATENT AND FLUSHING WELL, NO S/S OF INFECTION OR INFILTRATION, NS AT 75 ML/HR . COLOSTOMY BAG DRAINING TO A LIQUID, YELLOW OUTPUT NOTED LEAKING ON THE SIDE. BAG CHANGE BUT NO AVAILABLE EXTRA LARGE BAG. SAFETY MEASURES IN PLACE, BED IS LOCKED AND AT LOWEST POSITION, BED ALARM ON, SIDE RAILS UP X 2, CALL LIGHT WITHIN REACH OF PATIENT.
[2021-12-17 20:00] VITALS: BP 134/82
[2021-12-18] VITALS: BP 129/71
[2021-12-18] MEDS: HYDROMORPHONE 1 MG/1 ML DISP.SYRIN IV PRN ×4 (01:03→18:51)
[2021-12-18 04:00] VITALS: BP 127/82
[2021-12-18] MEDS: PIPERACILLIN /TAZOBACTAM 2.25 G in IV D5W 50 ML IV SCH ×2 (05:03→12:29)
[2021-12-18] MEDS: IV NS 0.9% 1,000 ML IV PRN (06:46)
--- NOTE | 2021-12-18 07:25 | NUR ---
BATTERY MECHANIC OPENING NOTES: RECEIVED PATIENT IN BED, AWAKE, ALERT, ORIENTED X 3. NO RESPIRATORY DISTRESS NOTED. ON OXYGEN @ 2L/MIN VIA N/C WITH OXYGEN SATURATION OF 97%. ON SR ON TELE MONITOR WITH HR OF 112. HAS IV FLUID OF NS RUNNING @ 75 ML.HR VIA RIGHT UPPER ARM MIDLINE. COLOSTOMY BAG IN PLACE BUT SLIGHTLY LEAKING, REINFORCED DRESSING AND TOWELS IN PLACE, PATIENT KEPT CLEAN AND DRY AT ALL TIMES, BAG DRAINING WITH LIGHT BROWNISH YELLOWISH WATERY FECES. PATIENT IN APPARENT PAIN OR DISCOMFORT AT THIS TIME. HOB SIGHTLY ELEVATED. BED LOCKED AND IN LOWEST POSITION. ALL SAFETY MEASURES IN PLACE. WILL CONTINUE TO MONITOR PATIENT THROUGHOUT SHIFT.
[2021-12-18 07:28] LABS: BASOPHILS % (AUTO) 0.2 % (0.0-2.0); EOSINOPHILS % (AUTO) 0.7 % (0.0-6.0); HEMATOCRIT 24 % (39-51); HEMOGLOBIN 7.8 g/dL (13.5-17.5); MEAN CORPUSCULAR HGB CONC 33 g/dl (31.0-36.0); MEAN CORPUSCULAR VOLUME 84 fL (80-96); MONOCYTES % (AUTO) 6.9 % (2.0-12.0); NEUTROPHILS # (AUTO) 11.9 K/uL (1.8-8.9); NEUTROPHILS % (AUTO) 85.2 % (43.0-81.0); PLATELET COUNT (AUTO) 638 K/uL (150-450)
[2021-12-18] MEDS: PANTOPRAZOLE 40 MG TABLET.DR PO SCH (07:35)
[2021-12-18] MEDS: GLUCERNA SHAKE 237 ML CAN PO SCH ×2 (07:40→17:13)
[2021-12-18 08:00] VITALS: BP 126/86
[2021-12-18 08:27] LABS: CALCIUM, SERUM 9.4 mg/dL (8.5-10.1); CREATININE 2.3 mg/dL (0.6-1.3); MAGNESIUM 2.1 mg/dL (1.8-2.4); PHOSPHORUS 3.6 mg/dL (2.5-4.9); POTASSIUM 4.2 mmol/L (3.5-5.1)
--- NOTE | 2021-12-18 11:23 | NUR ---
CALLED [facility] @ (WHERE THE PATIENT WAS PREVIOUSLY ADMITTED FROM) AND SPOKE WITH ERIK AND INQUIRED IF THEY STILL HAPPEN TO HAVE A COLOSTOMY BAG THAT THE PATIENT USED AT THE FACILITY BEFORE. HE SAID THAT HE WILL CHECK WITH THE TREATMENT NURSE AND WILL CALL US BACK. PROVIDED CALLBACK NUMBER FOR [facility].
[2021-12-18 12:00] VITALS: BP 144/78
--- NOTE | 2021-12-18 12:50 | NUR ---
CALLED [facility] AGAIN, SPOKE WITH ERIK AND SAID THAT THEY DON'T HAVE ANY AVAILABLE COLONOSCOPY SUPPLY RIGHT NOW BUT MAY TRY AGAIN TOMORROW.
[2021-12-18] MEDS ORDERED: HYDROMORPHONE 1 MG/1 ML DISP.SYRIN IV ONE (13:30)
[2021-12-18 16:00] VITALS: BP 137/78
[2021-12-18] MEDS ORDERED: CEFEPIME 1 GM in IV D5W 50 ML IV SCH (16:00)
--- NOTE | 2021-12-18 18:39 | NUR ---
EQUIPMENT TECHNICIAN CLOSING NOTES: PATIENT IN BED AWAKE, ALERT. ORIENTED X 3, WITH FAMILY AT BEDSIDE. PATIENT IN NO ACUTE RESPIRATORY DISTRESS. ON OXYGEN @ 2L/MIN VIA N/C WITH OXYGEN SATURATION OF 95%. ON ST ON TELE MONITOR WITH HR OF 108. HAS IVF OF NS RUNNING AT 75 ML.HR VIA RIGHT UPPER ARM MIDLINE, SITE WITH NO S/S INFILTRATION NOTED. EMPTIED COLOSTOMY BAG OF 725 WATERY LIGHT BROWNISH AND YELLOW COLORED FECES, SITE INTACT WITH A LITTLE BIT OF LEAKING BUT OTHERWISE, INTACT. PATIENT VOIDED AND EMPTIED 525 ML OF YELLOW COLORED URINE, NO HEMATURIA AND NO SEDIMENTATION NOTED. CALL LIGHT WITHIN REACH. BED LOCKED AND IN LOWEST POSITION. WILL ENDORSE TO NEXT SHIFT NURSE
--- NOTE | 2021-12-18 19:52 | NUR ---
SOLAR BUSINESS DEVELOPER OPEN NOTE: ALERT AND ORIENTED X3. UNLABORED BREATHING. ON 02 2LPMNC. O2 SAT AT 95 %. MOIST ORAL MUCOSA. FAIR SKIN TURGOR. TELE READING A.FIB TACHY 109. IVF OF NS RUNNING AT 75ML/HR. IV ON RIGHT UPPER ARM MIDLINE INTACT, PATENT WITH NO S/S OF COMPLICATIONS. ABDOMEN WOUND WITH COLOSTOMY BAG ATTACHED TO KRISHNAN URO-BAG WITH DRAINING SOFT AND YELLOW WATERY OUTPUT. DECLINES PAIN AT THIS TIME. HOB ELEVATED AT 30 DEGREE ANGLE. REPOSITIONED WITH PILLOWS. BILATERAL HALF SIDE RAILS UPX2. BED LOCKED, EXIT ALARM ON, IN LOW POSITION. CALL LIGHT IN REACH.
[2021-12-18 20:00] VITALS: BP 136/77
[2021-12-18] MEDS: CEFEPIME 2 GM in IV D5W 100 ML IV SCH (20:25)
[2021-12-18] MEDS: LINEZOLID 600 MG TABLET PO SCH (20:28)
[2021-12-19] VITALS: BP 141/89
[2021-12-19] MEDS: HYDROMORPHONE 1 MG/1 ML DISP.SYRIN IV PRN ×4 (00:57→18:34)
[2021-12-19] MEDS: IV NS 0.9% 1,000 ML IV PRN ×2 (02:38→15:19)
[2021-12-19 04:00] VITALS: BP 139/90
--- NOTE | 2021-12-19 06:36 | NUR ---
TOBACCO PACKING MACHINE OPERATOR CLOSE NOTE: ALERT AND ORIENTED X3. UNLABORED BREATHING. ON 02 2LPMNC. O2 SAT AT 95 %. MOIST ORAL MUCOSA. FAIR SKIN TURGOR. TELE READING SINUS TACHY 105. IVF OF NS RUNNING AT 75ML/HR. IV ON RIGHT UPPER ARM MIDLINE INTACT, PATENT WITH NO S/S OF COMPLICATIONS. ABDOMEN WOUND WITH COLOSTOMY BAG ATTACHED TO KRISHNAN URO-BAG WITH DRAINING SOFT AND YELLOW LIQUID OUTPUT WITH LEAKAGE FROM STOMA, CLEANSED WITH NS PAT DRY AND REINFORCED COLOSTOMY. DECLINES PAIN AT THIS TIME. HOB ELEVATED AT 30 DEGREE ANGLE. REPOSITIONED WITH PILLOWS. BILATERAL HALF SIDE RAILS UPX2. BED LOCKED, EXIT ALARM ON, IN LOW POSITION. CALL LIGHT IN REACH. Addendum: 12/19/21 at 0642 by SHAN QUICK RN ON ABX IV WITH NO A/R.
[2021-12-19 07:19] LABS: CALCIUM, SERUM 9.5 mg/dL (8.5-10.1); CREATININE 2.4 mg/dL (0.6-1.3); MAGNESIUM 1.9 mg/dL (1.8-2.4); PHOSPHORUS 4.3 mg/dL (2.5-4.9); POTASSIUM 4.3 mmol/L (3.5-5.1)
[2021-12-19] MEDS: GLUCERNA SHAKE 237 ML CAN PO SCH ×2 (07:27→17:28)
[2021-12-19] MEDS: PANTOPRAZOLE 40 MG TABLET.DR PO SCH (07:29)
--- NOTE | 2021-12-19 07:30 | NUR ---
RESOURCE SPECIALIST TEACHER OPENING NOTES: RECEIVED PATIENT IN BED, ASLEEP BUT EASILY AROUSES TO VOICE AND TOUCH. PATIENT IS ALERT, ORIENTED X 3. NO SOB NOTED, BREATHING EVEN AND UNLABORED. ON OXYGEN @ 2L/MIN VIA N/C WITH OXYGEN SATURATION OF 95%. ON ST ON TELE MONITOR WITH HR OF 112. HAS IV ACCESS, RIGHT UPPER MIDLINE RUNNING WITH NS @ 75 ML/HR. COLOSTOMY BAG IN PLACE BUT SLIGHTLY LEAKING, REINFORCED DRESSING AND TOWELS APPLIED. KEPT THE SITE CLEAN AND DRY AT ALL TIMES, DRAINAGE BAG NOTED WITH LIGHT YELLOW BROWN WATERY FECES. BED LOCKED AND IN LOWEST POSITION. CALL LIGHT WITHIN REACH. HOB SIGHTLY ELEVATED. ALL SAFETY MEASURES IMPLEMENTED. WILL CONTINUE TO MONITOR PATIENT THROUGHOUT SHIFT.
[2021-12-19 07:42] LABS: BASOPHILS # (AUTO) 0.1 K/uL (0.0-0.2); BASOPHILS % (AUTO) 0.5 % (0.0-2.0); EOSINOPHILS % (AUTO) 0.5 % (0.0-6.0); HEMATOCRIT 24 % (39-51); HEMOGLOBIN 7.6 g/dL (13.5-17.5); LYMPHOCYTES # (AUTO) 0.9 K/uL (0.8-4.8); LYMPHOCYTES % (AUTO) 6.3 % (20.0-44.0); MEAN CORPUSCULAR HGB CONC 32 g/dl (31.0-36.0); MEAN CORPUSCULAR VOLUME 84 fL (80-96); MONOCYTES # (AUTO) 1.1 K/uL (0.1-1.30); MONOCYTES % (AUTO) 7.9 % (2.0-12.0); NEUTROPHILS # (AUTO) 11.9 K/uL (1.8-8.9); NEUTROPHILS % (AUTO) 84.8 % (43.0-81.0); PLATELET COUNT (AUTO) 651 K/uL (150-450); RED BLOOD CELL COUNT(AUTO) 2.82 MIL/uL (4.5-6.0)
[2021-12-19 08:00] VITALS: BP 131/89
[2021-12-19] MEDS: LINEZOLID 600 MG TABLET PO SCH ×2 (09:08→22:27)
[2021-12-19] MEDS: CEFEPIME 2 GM in IV D5W 100 ML IV SCH ×2 (09:09→22:27)
[2021-12-19 12:00] VITALS: BP 138/90
[2021-12-19 16:00] VITALS: BP 131/82
--- NOTE | 2021-12-19 18:16 | NUR ---
NOTIFIED DR. WALLER OF THE PATIENT'S COLOSTOMY BAG LEAKING AND OOZING OUT, DESPITE SEVERAL ATTEMPTS OF REINFORCING THE DRESSING. DR WALLER ORDERED COLOSTOMY CARE AND TO JUST CONTINUE WITH DRESSING REINFORCEMENTS. NOTIFIED CHARGE NURSE AND CERTIFIED WELLNESS PROGRAM COORDINATOR AND ORDERED WOUND CARE CONSULT FOR THE PATIENT.
--- NOTE | 2021-12-19 18:41 | NUR ---
SENIOR ERP CONSULTANT CLOSING NOTES: PATIENT IN BED, AWAKE,ALERT,ORIENTED X 4. NO SOB, BREATHING EVEN AND UNLABORED. ON OXYGEN @ 2L/MIN VIA N/C WITH SATURATION OF 98%. PATIENT HAS IV ACCESS ON RIGHT UPPER ARM MIDLINE RUNNING WITH NS @ 75 ML/HR IV, SITE PATENT, NO S/S INFILTRATION NOTED. PATIENT USED URINAL AND VOIDED 600 ML OF YELLOW COLORED URINE, NO HEMATURIA AND NO SEDIMENTATION NOTED. EMPTIED 400 ML OF WATERY LIGHT BROWNISH YELLOWISH FECES. BED LOCKED AND IN LOWEST POSITION. CALL LIGHT WITHIN REACH. WILL ENDORSE TO NEXT SHIFT NURSE FOR CONTINUITY OF CARE.
[2021-12-19 20:00] VITALS: BP 131/86
--- NOTE | 2021-12-19 20:00 | NUR ---
BANKING REPRESENTATIVE OPEN NOTE: ALERT AND ORIENTED X3. UNLABORED BREATHING. ON 02 2LPMNC. O2 SAT AT 96 %. MOIST ORAL MUCOSA. FAIR SKIN TURGOR. TELE READING SINUS TACHY 104. IVF OF NS RUNNING AT 75ML/HR. IV ON RIGHT UPPER ARM MIDLINE INTACT, PATENT WITH NO S/S OF COMPLICATIONS. ABDOMEN WOUND WITH COLOSTOMY BAG ATTACHED TO KRISHNAN URO-BAG WITH DRAINING SOFT AND YELLOW WATERY OUTPUT. LEAKING FROM SIDE, CLEANSE WITH NS AND REINFORCED. PENDING WOUND CONSULT. DECLINES PAIN AT THIS TIME. HOB ELEVATED AT SEMI-CAO'S POSITION. REPOSITIONED WITH PILLOWS. BILATERAL HALF SIDE RAILS UPX2. BED LOCKED, EXIT ALARM ON, IN LOW POSITION. CALL LIGHT IN REACH.
[2021-12-20] VITALS: BP 137/83
[2021-12-20] MEDS: HYDROMORPHONE 1 MG/1 ML DISP.SYRIN IV PRN ×5 (00:55→23:50)
[2021-12-20] MEDS: IV NS 0.9% 1,000 ML IV PRN ×2 (03:48→14:48)
[2021-12-20 04:00] VITALS: BP 134/80
[2021-12-20 06:06] LABS: BASOPHILS # (AUTO) 0.1 K/uL (0.0-0.2); BASOPHILS % (AUTO) 0.7 % (0.0-2.0); EOSINOPHILS % (AUTO) 0.8 % (0.0-6.0); HEMATOCRIT 23 % (39-51); HEMOGLOBIN 7.6 g/dL (13.5-17.5); LYMPHOCYTES # (AUTO) 0.8 K/uL (0.8-4.8); LYMPHOCYTES % (AUTO) 6.2 % (20.0-44.0); MEAN CORPUSCULAR HGB CONC 33 g/dl (31.0-36.0); MEAN CORPUSCULAR VOLUME 84 fL (80-96); MONOCYTES # (AUTO) 1.1 K/uL (0.1-1.30); NEUTROPHILS # (AUTO) 11.5 K/uL (1.8-8.9); NEUTROPHILS % (AUTO) 84.3 % (43.0-81.0); PLATELET COUNT (AUTO) 610 K/uL (150-450); RED BLOOD CELL COUNT(AUTO) 2.78 MIL/uL (4.5-6.0); WHITE BLOOD COUNT (AUTO) 13.7 K/uL (4.3-11.0)
[2021-12-20 06:35] LABS: CALCIUM, SERUM 9.5 mg/dL (8.5-10.1); CREATININE 2.3 mg/dL (0.6-1.3); MAGNESIUM 1.8 mg/dL (1.8-2.4); PHOSPHORUS 4.5 mg/dL (2.5-4.9); POTASSIUM 4.4 mmol/L (3.5-5.1)
--- NOTE | 2021-12-20 07:00 | NUR ---
MEDIA JOB TITLES CLOSE NOTE: ALERT AND ORIENTED X3. UNLABORED BREATHING. ON 02 2LPMNC. O2 SAT AT 96%. MOIST ORAL MUCOSA. FAIR SKIN TURGOR. TELE READING SINUS TACHY 105. IVF OF NS RUNNING AT 75ML/HR. IV ON RIGHT UPPER ARM MIDLINE INTACT, PATENT WITH NO S/S OF COMPLICATIONS. ABDOMEN WOUND WITH COLOSTOMY BAG ATTACHED TO KRISHNAN URO-BAG WITH DRAINING SOFT AND YELLOW WATERY OUTPUT. LEAKING FROM SIDE, CLEANSE WITH NS AND REINFORCED. PENDING WOUND CONSULT. MEDICATED ORDERED FOR ABDOMINAL PAIN 11/02 DILAUDID IV ORDERED. CONTINUE ON ABX IV WITH NO A/R. HOB ELEVATED AT SEMI-CAO'S POSITION. REPOSITIONED WITH PILLOWS. BILATERAL HALF SIDE RAILS UPX2. BED LOCKED, EXIT ALARM ON, IN LOW POSITION. CALL LIGHT IN REACH.
--- NOTE | 2021-12-20 07:29 | NUR ---
ASPHALT SCREED OPERATOR OPENING NOTES PATIENT ALERT AND ORIENTED. NO SOB NOTED. UNLABORED BREATHING. ON 02 2LPM NC. TELE READING SINUS TACHY 108. IVF OF NS RUNNING AT 75ML/HR. IV ON RIGHT UPPER ARM MIDLINE INTACT, PATENT WITH NO S/S OF COMPLICATIONS. ABDOMEN WOUND WITH OSTOMY BAG. DENIES PAIN AT THIS TIME. HOB ELEVATED AT SEMI-CAO'S POSITION. BILATERAL HALF SIDE RAILS UPX2. BED LOCKED. CALL LIGHT WITHIN REACH. WILL CONTINUE TO MONITOR
[2021-12-20 08:00] VITALS: BP 134/86
[2021-12-20] MEDS: PANTOPRAZOLE 40 MG TABLET.DR PO SCH (08:04)
[2021-12-20] MEDS: LINEZOLID 600 MG TABLET PO SCH ×2 (08:04→20:24)
[2021-12-20] MEDS: CEFEPIME 2 GM in IV D5W 100 ML IV SCH ×2 (08:05→20:24)
[2021-12-20] MEDS: GLUCERNA SHAKE 237 ML CAN PO SCH ×2 (08:07→16:12)
--- NOTE | 2021-12-20 09:07 | NUR ---
WOUND CARE CONSULT: PT PRESENTS WITH LARGE OPEN AREA TO ABDOMEN WITH GREENISH SEMILIQUID DRAINAGE/STOOL, PRESENT ON ADMISSION. OSTOMY APPLIANCES DO NOT FIT LARGE OPENING. DEFER TO PMD FOR POSSIBLE GENERAL SURGERY CONSULT. RECOMMENDATIONS MADE FOR SKIN PROTECTION AND WOUND CARE UNTIL SEEN BY SURGEON. DISCUSSED WITH NURSING STAFF. MD IN AGREEMENT WITH PLAN OF CARE.
[2021-12-20 12:00] VITALS: BP 143/85
[2021-12-20 16:00] VITALS: BP 150/92
--- NOTE | 2021-12-20 18:18 | NUR ---
PERISHABLE FRUIT INSPECTOR CLOSE NOTE: PATIENT IS ALERT AND ORIENTED X3. NO SOB NOTED. UNLABORED BREATHING. ON 02 2LPM VIA NASAL CANNULA WITH 02 SAT OF 98%. TELE READING SR TO SINUS TACHY 109. IVF OF NS RUNNING AT 75ML/HR. IV ON RIGHT UPPER ARM MIDLINE PATENT AND INTACT WITH NO S/S OF COMPLICATIONS. ABDOMEN WOUND CARE RENDERED, NOTED WITH YELLOWISH DISCHARGE. CONTINUE ON ABX IV WITH NO A/R. HOB ELEVATED AT SEMI-CAO'S POSITION. REPOSITIONED WITH PILLOWS. BILATERAL HALF SIDE RAILS UPX2. BED LOCKED, EXIT ALARM ON, IN LOW POSITION. CALL LIGHT IN REACH. WILL ENDORSE TO NIGHT NURSE OF JULIO CESAR.
--- NOTE | 2021-12-20 19:30 | NUR ---
FANCY PACKER OPEN NOTE: ALERT AND ORIENTED X3. UNLABORED BREATHING. ON 02 2LPMNC. O2 SAT AT 96 %. MOIST ORAL MUCOSA. FAIR SKIN TURGOR. TELE READING SINUS TACHY 107. IVF OF NS RUNNING AT 75ML/HR. IV ON RIGHT UPPER ARM MIDLINE INTACT, PATENT WITH NO S/S OF COMPLICATIONS. ABDOMEN WITH CLEAN DRESSING ON ABDOMINAL WOUND. DECLINES PAIN AT THIS TIME. VISITED BY FAMILY DILSHAD. HOB ELEVATED AT SEMI-CAO'S POSITION. REPOSITIONED WITH PILLOWS. BILATERAL HALF SIDE RAILS UPX2. BED LOCKED, EXIT ALARM ON, IN LOW POSITION. CALL LIGHT IN REACH.
[2021-12-20 22:18] VITALS: BP 125/83
[2021-12-21] VITALS: BP 135/91
[2021-12-21] MEDS: IV NS 0.9% 1,000 ML IV PRN ×2 (03:48→15:52)
[2021-12-21 04:00] VITALS: BP 139/86
[2021-12-21 06:26] LABS: BASOPHILS # (AUTO) 0.1 K/uL (0.0-0.2); BASOPHILS % (AUTO) 0.5 % (0.0-2.0); EOSINOPHILS % (AUTO) 0.9 % (0.0-6.0); HEMATOCRIT 24 % (39-51); HEMOGLOBIN 7.7 g/dL (13.5-17.5); LYMPHOCYTES # (AUTO) 0.7 K/uL (0.8-4.8); LYMPHOCYTES % (AUTO) 5.1 % (20.0-44.0); MEAN CORPUSCULAR HGB CONC 32 g/dl (31.0-36.0); MEAN CORPUSCULAR VOLUME 85 fL (80-96); MONOCYTES # (AUTO) 1.2 K/uL (0.1-1.30); MONOCYTES % (AUTO) 8.5 % (2.0-12.0); NEUTROPHILS # (AUTO) 12.4 K/uL (1.8-8.9); PLATELET COUNT (AUTO) 625 K/uL (150-450); RED BLOOD CELL COUNT(AUTO) 2.82 MIL/uL (4.5-6.0); WHITE BLOOD COUNT (AUTO) 14.5 K/uL (4.3-11.0)
[2021-12-21 06:53] LABS: CALCIUM, SERUM 10.1 mg/dL (8.5-10.1); CREATININE 2.4 mg/dL (0.6-1.3); POTASSIUM 4.2 mmol/L (3.5-5.1)
[2021-12-21] MEDS: HYDROMORPHONE 1 MG/1 ML DISP.SYRIN IV PRN ×2 (06:59→18:07)
--- NOTE | 2021-12-21 07:00 | NUR ---
AUTOMOTIVE SALES ASSOCIATE CLOSING NOTE: ALERT AND ORIENTED X3. UNLABORED BREATHING. ON 02 2LPMNC. O2 SAT AT 96 %. MOIST ORAL MUCOSA. FAIR SKIN TURGOR. TELE READING SINUS TACHY 112. IVF OF NS RUNNING AT 75ML/HR. IV ON RIGHT UPPER ARM MIDLINE INTACT, PATENT WITH NO S/S OF COMPLICATIONS. ABDOMEN WOUND TX DONE 3 TIMES ORDERED, WITH CLEAN DRESSING ON ABDOMINAL WOUND NOW. OUTPUT FROM COLOSTOMY ABDOMINAL WOUND WITH EXCORIATED AREA IS WATERY YELLOW. DILAUDID GIVEN ORDERED FOR 8/10 ABDOMINAL PAIN. HOB ELEVATED AT SEMI-CAO'S POSITION. REPOSITIONED WITH PILLOWS. BILATERAL HALF SIDE RAILS UPX2. BED LOCKED, EXIT ALARM ON, IN LOW POSITION. CALL LIGHT IN REACH.
--- NOTE | 2021-12-21 07:23 | NUR ---
PIANO BUILDER OPEN NOTE: ALERT AND ORIENTED X3. UNLABORED BREATHING. ON 02 2LPMNC. O2 SAT AT 967%. MOIST ORAL MUCOSA. FAIR SKIN TURGOR. IVF OF NS RUNNING AT 75ML/HR. IV ON RIGHT UPPER ARM MIDLINE INTACT, PATENT WITH NO S/S OF COMPLICATIONS. ABDOMEN WOUND COVERED WITH CLEAN DRESSING . OUTPUT FROM COLOSTOMY ABDOMINAL WOUND WITH EXCORIATED AREA IS WATERY YELLOW. . HOB ELEVATED AT SEMI-CAO'S POSITION. REPOSITIONED WITH PILLOWS. BILATERAL HALF SIDE RAILS UPX2. BED LOCKED, EXIT ALARM ON, IN LOW POSITION. CALL LIGHT IN REACH. WILL CONTINUE TO FALLOW POC
[2021-12-21 08:00] VITALS: BP 123/87
[2021-12-21] MEDS: LINEZOLID 600 MG TABLET PO SCH ×2 (08:05→22:08)
[2021-12-21] MEDS: PANTOPRAZOLE 40 MG TABLET.DR PO SCH ×2 (08:05→22:08)
[2021-12-21] MEDS: GLUCERNA SHAKE 237 ML CAN PO SCH ×2 (08:06→16:04)
[2021-12-21] MEDS ORDERED: MAGNESIUM HYDROXIDE 30 ML UDC PO PRN (08:30)
[2021-12-21] MEDS: CEFEPIME 2 GM in IV D5W 100 ML IV SCH ×2 (08:53→22:08)
[2021-12-21] MEDS ORDERED: Medication Not On Formulary EA (Cran/Vitc/Mannose/Inulin/Brom (Uti-Stat Liquid) 30 ML) PO SCH (09:00)
[2021-12-21] MEDS: ZINC SULFATE 220 MG CAPSULE PO SCH (09:32)
[2021-12-21] MEDS: ASCORBIC ACID 500 MG TABLET PO SCH (09:32)
[2021-12-21] MEDS: CALCIUM CARB 600MG /VIT D 1 EACH TABLET PO SCH (09:32)
[2021-12-21] MEDS: FERROUS SULFATE (325 MG) 325 MG/TAB TABLET PO SCH (09:33)
[2021-12-21] MEDS: AMLODIPINE BESYLATE 10 MG TABLET PO SCH (09:33)
[2021-12-21] MEDS: DOCUSATE SODIUM 100 MG CAPSULE PO SCH (09:33)
[2021-12-21] MEDS: MULTIVIT W/MINERALS 1 TAB TABLET PO SCH (09:33)
[2021-12-21] MEDS: LINAGLIPTIN 5 MG TABLET PO SCH (09:34)
[2021-12-21] MEDS ORDERED: HYDROMORPHONE 1 MG/1 ML DISP.SYRIN IV ONE (11:30)
[2021-12-21 12:00] VITALS: BP 137/87
[2021-12-21 16:00] VITALS: BP 124/88
--- NOTE | 2021-12-21 18:55 | NUR ---
ROLL HAULER CLOSE NOTE: ALERT AND ORIENTED X3. UNLABORED BREATHING. ON 02 2LPMNC. O2 SAT AT 97%. MOIST ORAL MUCOSA. FAIR SKIN TURGOR. IVF OF NS RUNNING AT 75ML/HR. IV ON RIGHT UPPER ARM MIDLINE INTACT, PATENT WITH NO S/S OF COMPLICATIONS. ABDOMEN WOUND COVERED WITH BIG COLOSTOMY BAG AND SECURED WITH OSTOMY PASTE CONNECTED TO THE DRAINAGE BAG DRAINED 1300 CC YELLOW WATERY DRAINAGE OVER DAY SHIFT . HOB ELEVATED AT SEMI-CAO'S POSITION. REPOSITIONED WITH PILLOWS. BILATERAL HALF SIDE RAILS UPX2.ALL MEDICATION WERE ADMINISTERED ALL NEEDS WERE MET BED LOCKED, EXIT ALARM ON, IN LOW POSITION. CALL LIGHT IN REACH.
[2021-12-21 20:00] VITALS: BP 125/84
[2021-12-22] VITALS (10 sets, daily range): BP systolic 118–136; BP diastolic 77–85
[2021-12-22] MEDS: HYDROMORPHONE 1 MG/1 ML DISP.SYRIN IV PRN ×4 (00:39→18:39)
[2021-12-22 06:28] LABS: BASOPHILS # (AUTO) 0.1 K/uL (0.0-0.2); BASOPHILS % (AUTO) 0.6 % (0.0-2.0); EOSINOPHILS % (AUTO) 0.8 % (0.0-6.0); HEMATOCRIT 26 % (39-51); HEMOGLOBIN 8.2 g/dL (13.5-17.5); LYMPHOCYTES % (AUTO) 6.4 % (20.0-44.0); MEAN CORPUSCULAR HGB CONC 32 g/dl (31.0-36.0); MEAN CORPUSCULAR VOLUME 85 fL (80-96); MONOCYTES # (AUTO) 1.1 K/uL (0.1-1.30); MONOCYTES % (AUTO) 7.1 % (2.0-12.0); NEUTROPHILS # (AUTO) 12.6 K/uL (1.8-8.9); NEUTROPHILS % (AUTO) 85.1 % (43.0-81.0); PLATELET COUNT (AUTO) 687 K/uL (150-450); RED BLOOD CELL COUNT(AUTO) 3.07 MIL/uL (4.5-6.0); WHITE BLOOD COUNT (AUTO) 14.8 K/uL (4.3-11.0)
--- NOTE | 2021-12-22 07:10 | NUR ---
WOUND CARE CONSULT: PT SEEN FOR RE-EVALUATION OF ABDOMINAL SURGICAL SITE WHICH IS FUNCTIONING A LARGE STOMA. NURSING STAFF WAS ABLE TO ATTACH OSTOMY POUCH USING STOMA POWDER. PERIWOUND SKIN IS IMPROVING. CONCUR WITH STOMA POUCH AT THIS TIME. DISCUSSED WOUND CARE/SKIN PROTECTION WITH NURSING STAFF AND SURGICAL P.A. CURRENTLY ON CASE. RECOMMEND GENERAL SURGERY CONSULT. DEFER TO PMD. MD IN AGREEMENT WITH PLAN OF CARE.
--- NOTE | 2021-12-22 07:18 | NUR ---
RN CLOSING NOTE PATIENT RESTING IN BED. A/OX3. 2L NC. NO SOB NOTED. C/O ABDOMINAL PAIN, PRN DILAUDID 1MG IV GIVEN. SINUS TACHYCARDIA 10-115. PATY MIDLINE RUNNING NS @75. DRESSING CHANGED. COLOSTOMY BAG REINFORCED. OUTPUT YELLOW. GREEN LIQUID. PATIENT AWARE GOING TO ICU FOR RADHA PROCEDURE. PATIENT HAS BEEN NPO SINCE MIDNIGHT.
--- NOTE | 2021-12-22 07:24 | NUR ---
RN OPENING NOTE PATIENT RESTING IN BED. A/OX3. 2L NC. NO SOB NOTED. SINUS TACHYCARDIA 10-115. PATY MIDLINE RUNNING NS @75. COLOSTOMY BAG NOTED, OUTPUT YELLOW, GREEN LIQUID. PATIENT AWARE GOING TO ICU AT 1000 FOR RADHA PROCEDURE AT 1200, HAS BEEN NPO SINCE MIDNIGHT. WILL CONTINUE PLAN OF CARE AND ANTICIPATE NEEDS.
[2021-12-22 07:28] LABS: CALCIUM, SERUM 10.6 mg/dL (8.5-10.1); CREATININE 2.6 mg/dL (0.6-1.3); POTASSIUM 4.2 mmol/L (3.5-5.1)
[2021-12-22] MEDS: GLUCERNA SHAKE 237 ML CAN PO SCH ×2 (07:41→17:27)
[2021-12-22] MEDS: PANTOPRAZOLE 40 MG TABLET.DR PO SCH ×2 (08:21→21:15)
[2021-12-22] MEDS: FERROUS SULFATE (325 MG) 325 MG/TAB TABLET PO SCH (08:21)
[2021-12-22] MEDS: DOCUSATE SODIUM 100 MG CAPSULE PO SCH (08:21)
[2021-12-22] MEDS: CALCIUM CARB 600MG /VIT D 1 EACH TABLET PO SCH (08:21)
[2021-12-22] MEDS: MULTIVIT W/MINERALS 1 TAB TABLET PO SCH (08:21)
[2021-12-22] MEDS: ZINC SULFATE 220 MG CAPSULE PO SCH (08:22)
[2021-12-22] MEDS: ASCORBIC ACID 500 MG TABLET PO SCH (08:22)
[2021-12-22] MEDS: LINEZOLID 600 MG TABLET PO SCH ×2 (08:23→21:15)
[2021-12-22] MEDS: AMLODIPINE BESYLATE 10 MG TABLET PO SCH (08:23)
[2021-12-22] MEDS: LINAGLIPTIN 5 MG TABLET PO SCH (08:23)
[2021-12-22] MEDS: CEFEPIME 2 GM in IV D5W 100 ML IV SCH (08:24)
--- NOTE | 2021-12-22 11:21 | NUR ---
PATIENT TRANSFERRED TO ICU. HAND OFF REPORT GIVEN TO AMNA CORREIA
[2021-12-22] MEDS ORDERED: ANESTHESIA TRAY IN PYXIS 1 EA TRAY MC ONE (11:53)
--- NOTE | 2021-12-22 12:27 | NUR ---
pt done with RADHA. no complications. pt in stable condition. once pt is fully awake, will transfer to [facility].
--- NOTE | 2021-12-22 14:20 | NUR ---
RECEIVED PATIENT FROM ICU IN STABLE CONDITION. WILL CONTINUE PLAN OF CARE AND ANTICIPATE NEEDS.
[2021-12-22] MEDS: HYDROMORPHONE HCL 2 MG TABLET PO PRN (16:51)
--- NOTE | 2021-12-22 18:27 | NUR ---
RN CLOSING NOTE PATIENT RESTING IN BED. A/OX3. 2L NC. NO SOB NOTED. SINUS TACHYCARDIA 101. PATY MIDLINE RUNNING NS @75 MLS/HR. COLOSTOMY BAG NOTED, OUTPUT YELLOW/BROWN LIQUID. SAFETY MEASURES IMPLEMENTED. WILL ENDORSE TO NIGHTSHIFT RN FOR CONTINUATION OF CARE.
--- NOTE | 2021-12-22 19:00 | NUR ---
RN NOTE Patient in bed, AAO x 4, in no acute distress, breathing unlabored, saturation at 98% on 2L via NC, ST on the monitor, HR is 108. PATY midline patent and flushing well with NS infusing at 75 ml/hr. Colostomy connected to bag draining to a cloudy dark yellow output. Patient is continent and able to use urinal. Safety measures in place, bed is locked and at lowest position, bed alarm is on, side rails up x 2, call light within reach of patient. Will cont to monitor and reassess
[2021-12-23] VITALS: BP 135/87
[2021-12-23] MEDS: HYDROMORPHONE 1 MG/1 ML DISP.SYRIN IV PRN ×3 (00:48→12:58)
[2021-12-23] MEDS: IV NS 0.9% 1,000 ML IV PRN (03:12)
[2021-12-23] MEDS: HYDROMORPHONE HCL 2 MG TABLET PO PRN ×2 (03:20→15:44)
[2021-12-23 04:00] VITALS: BP 131/85
[2021-12-23 06:48] LABS: BASOPHILS # (AUTO) 0.1 K/uL (0.0-0.2); BASOPHILS % (AUTO) 0.7 % (0.0-2.0); EOSINOPHILS % (AUTO) 0.8 % (0.0-6.0); HEMATOCRIT 24 % (39-51); HEMOGLOBIN 7.7 g/dL (13.5-17.5); LYMPHOCYTES # (AUTO) 0.8 K/uL (0.8-4.8); LYMPHOCYTES % (AUTO) 5.8 % (20.0-44.0); MEAN CORPUSCULAR HGB CONC 32 g/dl (31.0-36.0); MEAN CORPUSCULAR VOLUME 86 fL (80-96); MONOCYTES % (AUTO) 7.4 % (2.0-12.0); NEUTROPHILS # (AUTO) 11.4 K/uL (1.8-8.9); NEUTROPHILS % (AUTO) 85.3 % (43.0-81.0); PLATELET COUNT (AUTO) 545 K/uL (150-450); RED BLOOD CELL COUNT(AUTO) 2.77 MIL/uL (4.5-6.0); WHITE BLOOD COUNT (AUTO) 13.3 K/uL (4.3-11.0)
[2021-12-23 07:18] LABS: CALCIUM, SERUM 10.1 mg/dL (8.5-10.1); CREATININE 2.4 mg/dL (0.6-1.3); POTASSIUM 4.6 mmol/L (3.5-5.1)
--- NOTE | 2021-12-23 07:30 | NUR ---
CAN PUSHER OPENING NOTES: RECEIVED PATIENT IN BED, AWAKE, ALERT, ORIENTED X 3. ON RA WITH OXYGEN SATURATION OF 96%. NO SOB NOTED, NO RESPIRATORY DISTRESS NOTED. ST ON TELE MONITOR WITH HR OF 101. PATIENT HAS IV ACCESS ON RIGHT UPPER ARM MIDLINE INFUSING WITH NS @ 75 ML/HR, IV SITE PATENT AND NO S/S INFILTRATION NOTED. COLOSTOMY BAG NOTED TO BE LEAKING, REINFORCED DRESSING AND KEPT PATIENT CLEAN AND DRY AT ALL TIMES, REFUSED TO CHANGE THE BAG RIGHT NOW. CALL LIGHT WITHIN REACH. BED LOCKED AND IN LOWEST POSITION. ALL SAFETY MEASURES IN PLACE. WILL CONTINUE TO MONITOR PATIENT THROUGHOUT SHIFT.
[2021-12-23 08:00] VITALS: BP 124/95
[2021-12-23] MEDS: GLUCERNA SHAKE 237 ML CAN PO SCH (08:00)
[2021-12-23] MEDS: LINEZOLID 600 MG TABLET PO SCH (08:46)
[2021-12-23] MEDS: ZINC SULFATE 220 MG CAPSULE PO SCH (08:46)
[2021-12-23] MEDS: CALCIUM CARB 600MG /VIT D 1 EACH TABLET PO SCH (08:46)
[2021-12-23] MEDS: LINAGLIPTIN 5 MG TABLET PO SCH (08:46)
[2021-12-23] MEDS: FERROUS SULFATE (325 MG) 325 MG/TAB TABLET PO SCH (08:46)
[2021-12-23] MEDS: MULTIVIT W/MINERALS 1 TAB TABLET PO SCH (08:46)
[2021-12-23] MEDS: ASCORBIC ACID 500 MG TABLET PO SCH (08:47)
[2021-12-23] MEDS: DOCUSATE SODIUM 100 MG CAPSULE PO SCH (08:47)
[2021-12-23] MEDS: PANTOPRAZOLE 40 MG TABLET.DR PO SCH (08:47)
[2021-12-23] MEDS: AMLODIPINE BESYLATE 10 MG TABLET PO SCH (08:47)
[2021-12-23] MEDS ORDERED: CEFEPIME 2 GM in IV D5W 100 ML IV SCH (09:00)
[2021-12-23] MEDS: ONDANSETRON HCL/PF 4 MG/2 ML VIAL IVP PRN (11:31)
[2021-12-23 12:00] VITALS: BP 138/89
[2021-12-23 16:00] VITALS: BP 132/87
--- NOTE | 2021-12-23 16:01 | NUR ---
CALLED VERNA WASHINGTON @ AND GAVE FULL REPORT FOR THE PATIENT. SPOKE WITH AMNA GANNON AND INFORMED OF DISCHARGE INSTRUCTIONS FOR THE PATIENT.
--- NOTE | 2021-12-23 17:04 | NUR ---
TRANSPORTATION CAME TO WELDING MACHINE OPERATOR GAS THE PATIENT ACCOMPANIED BY THREE ATTENDANTS. GAVE REPORT TO PENNY. PATIENT LEFT WITH HIS INTACT MIDLINE ON RIGHT UPPER ARM FOR IV ANTIBIOTIC USE AT [facility]. PHARMACY OPERATIONS SPECIALIST WAS TAKEN OFF THE PATIENT WELL HIS ID BAND. PATIENT LEFT IN NO APPARENT DISTRESS VIA GURNEY.
== END 2021-12-23 17:56 | disposition short-term general hospital (02) | DRG 314 ==
LOC: ER 15:39 → TRANSITION 12-10 00:04 → TELE1 12-10 00:30 → ICU 12-22 11:28 → TELE1 12-22 14:15
PROVIDERS: ADMIT Nurse Practitioner Family; ATTEND Nurse Practitioner Acute Care
PROC: 30233N1 Transfusion of Nonautologous Red Blood Cells into Peripheral Vein, Percutaneous Approach (ICD-10-PCS; principal; 2021-12-10)
PROC: 05HA33Z Insertion of Infusion Device into Left Brachial Vein, Percutaneous Approach (ICD-10-PCS; 2021-12-10)
PROC: B246ZZ4 Ultrasonography of Right and Left Heart, Transesophageal (ICD-10-PCS; 2021-12-22)
DX: T80.211A Bloodstream infection due to central venous catheter, initial encounter (principal); A41.01 Sepsis due to Methicillin susceptible Staphylococcus aureus; E43 Unspecified severe protein-calorie malnutrition; G92.8 Other toxic encephalopathy; N17.0 Acute kidney failure with tubular necrosis; R65.20 Severe sepsis without septic shock; A41.81 Sepsis due to Enterococcus; E87.2 Acidosis; K92.2 Gastrointestinal hemorrhage, unspecified; J90 Pleural effusion, not elsewhere classified; K63.2 Fistula of intestine; B49 Unspecified mycosis; T81.30XA Disruption of wound, unspecified, initial encounter; Z20.822 Contact with and (suspected) exposure to COVID-19; E11.9 Type 2 diabetes mellitus without complications; I10 Essential (primary) hypertension; Z79.4 Long term (current) use of insulin; Z79.01 Long term (current) use of anticoagulants; D64.9 Anemia, unspecified; E87.6 Hypokalemia; E88.09 Other disorders of plasma-protein metabolism, not elsewhere classified; Z98.890 Other specified postprocedural states; I25.10 Atherosclerotic heart disease of native coronary artery without angina pectoris; Z90.49 Acquired absence of other specified parts of digestive tract; Z93.3 Colostomy status; Y84.8 Other medical procedures as the cause of abnormal reaction of the patient, or of later complication, without mention of misadventure at the time of the procedure; Y92.129 Unspecified place in nursing home as the place of occurrence of the external cause; R91.8 Other nonspecific abnormal finding of lung field; Y83.9 Surgical procedure, unspecified as the cause of abnormal reaction of the patient, or of later complication, without mention of misadventure at the time of the procedure; Z87.19 Personal history of other diseases of the digestive system
CPT/HCPCS: 36410; 36415; 36600; 70450-TC; 71045-TC; 71250-TC; 80048-TC; 80076-TC; 80202-TC; 81001; 82272-TC; 82728-TC; 82962-TC; 83540-TC; 83605-TC; 83735-TC; 84100-TC; 84443-TC; 84484-TC; 85025-TC; 86480; 86850-TC; 87040-TC; 87070-TC; 87081-TC; 87086-TC; 87116; 87186-TC; 87206; 93307-TC; 93312-TC; 94640-TC; 94799-TC; A6253; A6403; C9113; C9803; G0378; J0692; J1170; J2270; J2405; J2543; J2704; J3370; J3475; J3480; J3490; J7030; J7040; J7050; J7060; P9016